=== PATIENT | female | born 1985 | race Caucasian/White ===

== ENCOUNTER → 2017-12-14 | Outpatient (CLI) | payer MEDICAID ==
[~2017-12-14] MED LIST: LVT.15T PO
--- NOTE | 2017-12-14 16:01 | Diagnostic Imaging Report ---
INDICATION: survey. TECHNIQUE: Multiple real-time grayscale images were obtained over the gravid uterus. COMPARISON: None. FINDINGS: There is a single live fetus in a variable presentation. The placenta is posterior. The amniotic fluid volume is normal. Cervical length is 4.8 cm. kidneys, bladder, and stomach are visualized. brain anatomy is unremarkable. There is a four-chamber heart. heart rate is 149 beats per minute. Three-vessel cord is noted. Cord insertion is unremarkable. spine is unremarkable. Biometrical measurements are as follows: Biparietal 5.0 cm, age 21 weeks 1 days. Head circumference 18.18 cm, age 20 weeks 4 days. Abdominal circumference 14.96 cm, age 20 weeks 2 days. Femur length 3.34 cm, age 20 weeks 4 days. Sonographic estimate age: 20 weeks 5 days. Sonographic estimated date of delivery: 04/28/2018. Estimated Weight: 350 gm (+/- 51 gm). LMP percentile: 42%. heart rate: 149 beats per minute. number: 1 of 1. IMPRESSION: Single live IUP of approximately 20 weeks 5 days gestational age. The estimated date of confinement sonographically is 04/28/2018. Dictated by: Dictated on workstation # [id number]
== END ==
LOC: RAD 15:26
PROVIDERS: ATTEND Obstetrics & Gynecology
DX: Z36.89 Encounter for other specified antenatal screening (principal); Z3A.20 20 weeks gestation of pregnancy
CPT/HCPCS: 76805

== ENCOUNTER → 2018-02-05 | Outpatient (CLI) | payer MEDICAID | LOC: LAB 08:02 | PROVIDERS: ATTEND Obstetrics & Gynecology | DX: O99.810 Abnormal glucose complicating pregnancy (principal) | CPT/HCPCS: 36415; 82951; 82952; 82962 ==

== ENCOUNTER 2018-03-21 09:50 | Outpatient (CLI) | payer MEDICAID ==
[2018-03-21] MEDS ORDERED: CLIN300C11 PO (11:55)
[2018-03-21] MEDS ORDERED: HYDR-757 PO (11:55)
--- NOTE | 2018-03-23 13:31 | Physician Query-Final Dx ---
SONALI MARTINEZ 03/23/18 1330: Clinic Account Progress/Dx Physician Query: Please give diagnosis Date of Service March 21, 2018 at 09:50 JOSSUE CARTER MD 03/28/18 1313: Clinic Account Progress/Dx DIAGNOSIS: Diagnosis Pilonidal cyst SONALI MARTINEZ March 23, 2018 13:30 JOSSUE CARTER MD March 28, 2018 13:13
[2018-04-19] MEDS ORDERED: ACHD5005 PO (08:56)
[2018-04-19] MEDS ORDERED: IBUP-844 PO (08:56)
== END 2018-03-21 10:57 | disposition home or self-care (01) ==
LOC: WSo 09:50 → LDRP 09:51 → WSo 10:57
PROVIDERS: ATTEND Obstetrics & Gynecology
DX: O99.713 Diseases of the skin and subcutaneous tissue complicating pregnancy, third trimester (principal); L05.91 Pilonidal cyst without abscess; Z3A.34 34 weeks gestation of pregnancy
CPT/HCPCS: 99212

== ENCOUNTER 2018-03-21 11:02 | Emergency (ER) | payer MEDICAID ==
[~2018-03-21] VITALS: Ht 154.9 cm; Wt 78.9 kg
--- OUTSIDE RECORDS SUMMARY | 2018-03-21 11:11 | XMS REPORT | Continuity of Care Document ---
Demographics Preferred Language Unknown Marital Status Unknown Oriental Orthodox Affiliation Unknown Race Unknown Ethnic Group Unknown Author Author [facility] Address Unknown Phone Unavailable Allergies Active Description Code Type Severity Reaction Onset Reported/Identified Relationship to Patient Clinical Status Yes No Known Drug Allergies [id number] Drug Allergy Unknown N/A 03/30/2008 Medications There is no data. Problems Date Dx Coded Attending Type Code Diagnosis Diagnosed By 07/23/2008 477.9 RHINITIS ALLERGIC 12/15/2008 380.4 CERUMEN IMPACTION 04/23/2009 244.9 UNSPECIFIED ACQUIRED HYPOTHYROIDISM 05/12/2011 493.90 ASTHMA UNSPECIFIED 05/12/2011 654.20 PREVIOUS C- SECTION 05/12/2011 V23.9 , HIGH-RISK (UNSPEC) 05/13/2011 V82.79 OTHER GENETIC SCREENING 09/16/2011 V65.11 NEW MOMMY VISIT 11/18/2011 626.8 DYSFUNCTIONAL UTERINE BLEEDING 11/18/2011 704.1 excessive facial or body hair (hirsutism) 11/18/2011 V77.1 visit for: screening exam diabetes mellitus 03/10/2012 239.3 BREAST MASS 03/11/2016 Ot 611.72 LUMP OR MASS IN BREAST 03/11/2016 Ot 611.72 LUMP OR MASS IN BREAST 03/11/2016 Ot 239.3 BREAST NEOPLASM NOS 03/11/2016 Ot 244.9 HYPOTHYROIDISM NOS 03/11/2016 Ot 648.13 THYROID DYSFUNC-ANTEPART 03/11/2016 Ot 649.63 UTERINE SIZE DATE DISCREPANCY, ANTEPARTU 03/13/2016 ANNIE YU Ot E01.0 IODINE-DEFICIENCY RELATED DIFFUSE (ENDEM 03/31/2016 ANNIE YU Ot E01.0 IODINE-DEFICIENCY RELATED DIFFUSE (ENDEM 05/29/2016 Ot 611.72 LUMP OR MASS IN BREAST 05/29/2016 Ot 611.72 LUMP OR MASS IN BREAST 05/29/2016 Ot 239.3 BREAST NEOPLASM NOS 06/01/2016 Ot 611.72 LUMP OR MASS IN BREAST 06/01/2016 Ot 611.72 LUMP OR MASS IN BREAST 06/01/2016 Ot 239.3 BREAST NEOPLASM NOS 12/08/2017 ANNIE YU [employer] Ot E01.0 IODINE-DEFICIENCY RELATED DIFFUSE (ENDEM 12/08/2017 ANNIE YU [employer] ELECT[employer]ICIAN Ot E01.0 IODINE-DEFICIENCY RELATED DIFFUSE (ENDEM 12/15/2017 FENECH DO, BRYN S Ot Z36.89 ENCOUNTER FOR OTHER SPECIFIED 12/15/2017 FENECH DO, BRYN S Ot Z3A.20 20 WEEKS GESTATION OF 12/15/2017 FENECH DO, BRYN S Ot Z36.89 ENCOUNTER FOR OTHER SPECIFIED 12/15/2017 FENECH DO, BRYN S Ot Z3A.20 20 WEEKS GESTATION OF 12/29/2017 FENECH DO, BRYN S Ot Z36.89 ENCOUNTER FOR OTHER SPECIFIED 12/29/2017 FENECH DO, BRYN S Ot Z3A.20 20 WEEKS GESTATION OF 02/05/2018 ANNIE YU [employer] Ot E01.0 IODINE-DEFICIENCY RELATED DIFFUSE (ENDEM 02/05/2018 FENECH DO, BRYN S Ot Z36.89 ENCOUNTER FOR OTHER SPECIFIED 02/05/2018 FENECH DO, BRYN S Ot Z3A.20 20 WEEKS GESTATION OF 02/07/2018 FENECH DO, BRYN S Ot O99.810 ABNORMAL GLUCOSE COMPLICATING 02/11/2018 FENECH DO, BRYN S Ot O99.810 ABNORMAL GLUCOSE COMPLICATING 02/21/2018 FENECH DO, BRYN S Ot O99.810 ABNORMAL GLUCOSE COMPLICATING Procedures There is no data. Results Test Result Range Thyroid Stimulating Hormone - 11/12/16 17:18 TSH 2.10 mIU/mL 0.32-5.00 Thyroid Stimulating Hormone - 06/10/17 15:20 TSH 0.69 mIU/mL 0.32-5.00 Testosterone, Free, Direct - 06/10/17 15:20 FREE TESTOSTERONE(DIRECT) 1.4 PG/ML 0.0-4.2 Capillary blood glucose measurement by glucometer (mass/volume) - 02/05/18 08: 23 Capillary blood glucose measurement by glucometer (mass/volume) 85 mg/dL 70-110 Encounters ACCT No. Visit Date/Time Discharge Status Pt. Type Provider Facility Loc./Unit Complaint [id number] 03/10/2012 12:02:00 Document Registration [id number] 02/05/2018 08:02:00 02/05/2018 23:59:59 CLS Outpatient BRYN WEAVER DO [facility] 099.810 [id number] 12/14/2017 15:26:00 12/14/2017 23:59:59 CLS Outpatient BRYN WEAVER DO [facility] RAD Z33.1 [id number] 03/11/2016 12:53:00 03/11/2016 23:59:59 CLS Outpatient ANNIE YU [facility] RAD THYROMEGALY, FOLLOW UP [id number] 03/11/2016 12:53:00 Document Registration [id number] 03/31/2012 07:57:00 Document Registration [id number] 03/23/2012 09:01:00 Document Registration [id number] 03/14/2012 11:37:00 Document Registration [id number] 05/20/2011 14:51:00 Document Registration [id number] 06/10/2017 15:29:00 06/10/2017 23:59:00 DIS Outpatient TOMER MILNER [id number] 11/12/2016 17:09:00 11/12/2016 23:59:00 DIS Outpatient TOMER MILNER
--- NOTE | 2018-03-21 11:36 | ED Integumentary General ---
General Chief Complaint: Skin/Wound Problems Stated Complaint: TAIL BONE PAIN POSSIBLE ABCESS/ 34 WEEKS PREG Nursing Triage Note: PATIENT COMPLAINS OF AN ABCESS ON HER LOWER BACK/TAILBONE REGION THAT SHE NOTICED LAST WEEK. PCP UNABLE TO SEE HER. Source: patient Exam Limitations: no limitations History of Present Illness Date Seen by Provider: March 21, 2018 Time Seen by Provider: 11:34 Initial Comments 34 week female presents to ER with tailbone pain for about one week. She has a history of this type of pain about 12 years ago when she had a pilonidal abscess. No fevers or chills. Timing/Duration: week, getting worse Severity: moderate Associated Symptoms: No fever Allergies and Home Medications Allergies Coded Allergies: No Known Drug Allergies (Verified Allergy, Unknown, 03/30/08) Home Medications Levothyroxine Sodium 150 Mcg Tablet, 1 EACH PO DAILY, (Reported) Patient Home Medication List Home Medication List Reviewed: Yes Constitutional: see HPI; No chills, No fever EENTM: see HPI Respiratory: no symptoms reported Cardiovascular: no symptoms reported Genitourinary: no symptoms reported Musculoskeletal: no symptoms reported Skin: see HPI Psychiatric/Neurological: No Symptoms Reported Endocrine: No Symptoms Reported Past Neuammh-Fuvwvh-Kjlwrp Hx Patient Social History Recent Foreign Travel: No Contact w/Someone Who Travel: No Recent Infectious Disease Expo: No Physical Exam Vital Signs Vital Signs - First Documented 03/21/18 11:26 Temp 98.8 Pulse 104 Resp 22 B/P (MAP) 124/70 (88) Pulse Ox 98 O2 Delivery Room Air Capillary Refill : Less Than 3 Seconds General Appearance: WD/WN, no apparent distress HEENT: PERRL/EOMI, normal ENT inspection Neck: non-tender, full range of motion Respiratory: no respiratory distress, no accessory muscle use Neurologic/Psychiatric: alert, normal mood/affect, oriented x 3 Skin: normal color, warm/dry Skin Problem Location: other (3 cm area of induration to the superior right side gluteal cleft consistent with pilonidal abscess.) Skin Problem Character: abscess Procedures/Interventions I&D : Blade Size: 11 Packing/Drain: Idoform / Progress Pilonidal abscess anesthetized with 2 mL of 2% lidocaine without epinephrine. Wound then opened with an 11 blade scalpel. Moderate amount of foul-smelling purulent material expressed. Culture collected and sent to lab. Progress/Results/Core Measures Results/Orders My Orders Orders - CHUCK DAVIES APRN Lidocaine 2% Injection 20 Ml (Xylocaine (03/21/18 11:45) Wound Culture (03/21/18 11:32) Clindamycin Capsule (Cleocin Capsule) (03/21/18 11:45) Hydrocodone/Apap 5/325 Tablet (Lortab 5 (03/21/18 11:45) Medications Given in ED Current Medications Medications Dose Ordered Sig/Joss Route Start Time Stop Time Status Last Admin Dose Admin Acetaminophen/ Hydrocodone Bitart 1 tab ONCE ONCE PO 03/21/18 11:45 03/21/18 11:46 DC 03/21/18 11:41 1 TAB Clindamycin HCl 300 mg ONCE ONCE PO 03/21/18 11:45 03/21/18 11:46 DC 03/21/18 11:41 300 MG Lidocaine HCl 2 ml ONCE ONCE INJ 03/21/18 11:45 03/21/18 11:46 DC 03/21/18 11:40 2 ML Vital Signs/I&O 03/21/18 11:26 Temp 98.8 Pulse 104 Resp 22 B/P (MAP) 124/70 (88) Pulse Ox 98 O2 Delivery Room Air Blood Pressure Mean: 88 Departure Impression Primary Impression: Pilonidal abscess Disposition: 01 HOME, SELF-CARE Condition: Stable Departure-Patient Inst. Decision time for Depature: 11:36 Referrals: BRYN WEAVER DO (PCP/Family) Primary Care Physician Patient Instructions: Abscess Incision and Drainage (DC) Add. Discharge Instructions: 1. You may shower leading water run over this. Take the antibiotics as directed. Follow-up with your primary care provider in 3-4 days for recheck. All discharge instructions reviewed with patient and/or family. Voiced understanding. Scripts Hydrocodone/Acetaminophen ([place] 5-325 Tablet) 1 Each Tablet 1 EACH PO Q4H PRN for PAIN-MODERATE TO SEVERE, #10 TAB Prov: CHUCK DAVIES APRN 03/21/18 Clindamycin HCl (Clindamycin HCl) 300 Mg Capsule 300 MG PO TID, #21 CAP Prov: CHUCK DAVIES APRN 03/21/18 Work/School Note: Work Release Form Date Seen in the Emergency Department: March 21, 2018 Return to Work: March 23, 2018 Copy Copies To 1: BRYN WEAVER PETER J APRN March 21, 2018 11:36
[2018-03-21] MEDS ORDERED: CLINDAMYCIN 150 MG (CLEOCIN) CAP PO ONE (11:45)
[2018-03-21] MEDS ORDERED: HYDROcodone/APAP 5 MG/325 MG (LORTAB) TAB PO ONE (11:45)
[2018-03-21] MEDS ORDERED: LIDOCAINE 2% 20 ML (XYLOCAINE) VIAL INJ ONE (11:45)
[2018-03-21] MEDS ORDERED: CLIN300C11 PO (11:55)
[2018-03-21] MEDS ORDERED: HYDR-757 PO (11:55)
[2018-03-21 12:02] VITALS: BP 124/70
[2018-04-19] MEDS ORDERED: IBUP-844 PO (08:56)
[2018-04-19] MEDS ORDERED: ACHD5005 PO (08:56)
== END 2018-03-21 12:02 | disposition home or self-care (01) ==
LOC: EDUNIT# 11:02 → ER 11:06
DX: O99.713 Diseases of the skin and subcutaneous tissue complicating pregnancy, third trimester (principal); L05.01 Pilonidal cyst with abscess; Z3A.34 34 weeks gestation of pregnancy
CPT/HCPCS: 87070; 87205; 99284

== ENCOUNTER 2018-04-02 13:42 | Outpatient (CLI) | payer MEDICAID ==
[~2018-04-02] VITALS: Ht 154.9 cm; Wt 80.3 kg
[~2018-04-02 13:42] MED LIST changes: +CLIN300C11 PO; +HYDR-757 PO
[2018-04-02 14:00] VITALS: BP 124/71
[2018-04-02 14:12] LABS: BILIRUBIN,URINE NEGATIVE (NEGATIVE); CLARITY,URINE SLIGHTLY CLOUDY; COLOR,URINE YELLOW; GLUCOSE, URINE (UA) NEGATIVE (NEGATIVE); KETONES,URINE 1+ (NEGATIVE); LEUKOCYTE ESTERASE ,URINE NEGATIVE (NEGATIVE); NITRITE,URINE NEGATIVE (NEGATIVE); PH,URINE 6.5 (5-9); PROTEIN,URINE NEGATIVE (NEGATIVE); UROBILINOGEN,URINE 1 MG/DL (NORMAL)
[2018-04-02 14:20] VITALS: BP 109/62
[2018-04-02 14:22] LABS: BACTERIA,URINE MODERATE /HPF; WBC,URINE 0-2 /HPF
[2018-04-02 14:40] VITALS: BP 118/63
--- NOTE | 2018-04-04 20:18 | Physician Query-Final Dx ---
CHARISMA JACQUES 04/04/18 2018: Clinic Account Progress/Dx Physician Query: Please give diagnosis Date of Service April 02, 2018 at 13:42 GENE CAMERON DO 04/25/18 0826: Clinic Account Progress/Dx DIAGNOSIS: Diagnosis contractions, third trimester previous section CHARISMA JACQUES April 04, 2018 20:18 GENE CAMERON DO Apr 25, 2018 08:26
== END 2018-04-02 15:00 | disposition home or self-care (01) ==
LOC: WSo 13:42 → LDRP 13:42 → WSo 15:00
PROVIDERS: ATTEND Obstetrics & Gynecology
DX: O47.03 False labor before 37 completed weeks of gestation, third trimester (principal); O34.211 Maternal care for low transverse scar from previous cesarean delivery; Z3A.36 36 weeks gestation of pregnancy
CPT/HCPCS: 81000; 87088; 99213

== ENCOUNTER 2018-04-06 11:15 | Outpatient (CLI) | payer MEDICAID ==
[~2018-04-06] VITALS: Ht 156.2 cm; Wt 79.4 kg
[2018-04-06 11:20] VITALS: BP 118/66
[2018-04-06] MEDS ORDERED: NS IV 500 ML 500 ML IV SCH (11:30)
[2018-04-06] MEDS ORDERED: D5 LR IV SOLUTION 1,000 ML IV SCH (11:30)
[2018-04-06] MEDS ORDERED: NS IV 500 ML 500 ML ONE (11:31)
[2018-04-06 12:06] LABS: BASOPHILS % (AUTO) 0 % (0-10); EOSINOPHILS # (AUTO) 0.1 10^3/uL (0.0-0.3); EOSINOPHILS % (AUTO) 1 % (0-10); HEMATOCRIT 33 % (35-52); HEMOGLOBIN 11.4 G/DL (11.5-16.0); LYMPHOCYTES % (AUTO) 22 % (12-44); MEAN CORPUSCULAR HEMOGLOBIN 31 PG (25-34); MEAN CORPUSCULAR HGB CONC 34 G/DL (32-36); MEAN CORPUSCULAR VOLUME 91 FL (80-99); MEAN PLATELET VOLUME 10.5 FL (7.4-10.4); MONOCYTES # (AUTO) 0.5 X 10^3 (0.0-1.0); MONOCYTES % (AUTO) 5 % (0-12); NEUTROPHILS # (AUTO) 6.5 X 10^3 (1.8-7.8); NEUTROPHILS % (AUTO) 72 % (42-75); PLATELET COUNT 258 10^3/uL (130-400); RED BLOOD COUNT 3.64 10^6/uL (4.35-5.85); RED CELL DISTRIBUTION WIDTH 12.4 % (10.0-14.5)
[2018-04-06] MEDS ORDERED: PREN1TAB86 PO (14:12)
[2018-04-06] MEDS ORDERED: LIOTHYSO5 PO (14:14)
[2018-04-06] MEDS ORDERED: METF500T5 PO (14:16)
[2018-04-06 16:40] VITALS: BP 123/72
--- NOTE | 2018-04-07 12:17 | Physician Query-Final Dx ---
SONALI MARTINEZ 04/07/18 1217: Clinic Account Progress/Dx Physician Query: Please give diagnosis Date of Service April 06, 2018 at 11:15 BRYN WEAVER DO 04/08/18 0710: Clinic Account Progress/Dx DIAGNOSIS: Diagnosis 36.3 week IUP contractions Previous SONALI MARTINEZ April 07, 2018 12:17 BRYN WEAVER DO April 08, 2018 07:10
[2018-04-19] MEDS ORDERED: IBUP-844 PO (08:56)
[2018-04-19] MEDS ORDERED: ACHD5005 PO (08:56)
== END 2018-04-06 17:15 | disposition home or self-care (01) ==
LOC: WSo 11:15 → LDRP 11:16 → WSo 17:15
PROVIDERS: ATTEND Obstetrics & Gynecology
DX: O47.03 False labor before 37 completed weeks of gestation, third trimester (principal); O34.219 Maternal care for unspecified type scar from previous cesarean delivery; Z3A.36 36 weeks gestation of pregnancy
CPT/HCPCS: 36415; 85025; 86850; 86900; 86901; 96360; 96361; 99213

== ENCOUNTER 2018-04-17 13:17 | Inpatient (IN) | payer MEDICAID ==
[~2018-04-17] VITALS: Ht 156.2 cm; Wt 78.2 kg
[~2018-04-17 13:17] MED LIST changes: +LIOTHYSO5 PO; +METF500T5 PO; +PREN1TAB86 PO
[2018-04-17 13:25] VITALS: BP 120/70
[2018-04-17] MEDS: LACTATED RINGERS 1,000 ML IV PRN ×2 (13:50→15:29)
[2018-04-17 14:08] LABS: BASOPHILS % (AUTO) 0 % (0-10); EOSINOPHILS # (AUTO) 0.1 10^3/uL (0.0-0.3); EOSINOPHILS % (AUTO) 1 % (0-10); HEMATOCRIT 35 % (35-52); LYMPHOCYTES # (AUTO) 2.3 X 10^3 (1.0-4.0); LYMPHOCYTES % (AUTO) 27 % (12-44); MEAN CORPUSCULAR HEMOGLOBIN 31 PG (25-34); MEAN CORPUSCULAR HGB CONC 35 G/DL (32-36); MEAN CORPUSCULAR VOLUME 90 FL (80-99); MEAN PLATELET VOLUME 10.9 FL (7.4-10.4); MONOCYTES # (AUTO) 0.5 X 10^3 (0.0-1.0); MONOCYTES % (AUTO) 6 % (0-12); NEUTROPHILS # (AUTO) 5.7 X 10^3 (1.8-7.8); NEUTROPHILS % (AUTO) 67 % (42-75); PLATELET COUNT 235 10^3/uL (130-400); RED BLOOD COUNT 3.85 10^6/uL (4.35-5.85); RED CELL DISTRIBUTION WIDTH 12.7 % (10.0-14.5); WHITE BLOOD COUNT 8.6 10^3/uL (4.3-11.0)
[2018-04-17] MEDS ORDERED: METOCLOPRAMIDE INJ 10 MG/2 ML (REGLAN) ONE (14:14)
[2018-04-17] MEDS ORDERED: CITRIC ACID/SOB CIT (BICITRA) 30 ML UDC ONE (14:14)
[2018-04-17] MEDS ORDERED: raNItidine 50 MG/2 ML INJ (ZANTAC) ONE (14:14)
[2018-04-17] MEDS ORDERED: metroNIDAZOLE 500MG/100ML IVPB 100 ML ONE (14:23)
[2018-04-17] MEDS ORDERED: AZITHROMYCIN 500 MG (ZITHROMAX) VIAL ONE (14:24)
[2018-04-17] MEDS ORDERED: NS (IVPB) 0 ML ONE (14:24)
[2018-04-17] MEDS ORDERED: NS (IVPB) 250 ML ONE (14:26)
[2018-04-17] MEDS ORDERED: D5 LR IV SOLUTION 1,000 ML IV SCH ×2 (14:27→15:38)
[2018-04-17] MEDS ORDERED: AZITHROMYCIN INJECTION 500 MG in NS (IVPB) 250 ML IV NR (14:30)
[2018-04-17] MEDS ORDERED: BUPIVACAINE SPINAL 0.75% (SENSORCAINE) 2 ML AMP ONE (14:31)
--- NOTE | 2018-04-17 14:31 | History & Physical-OB/GYN ---
History of Present Illness History of Present Illness Reason for visit/HPI rupture of membranes Date of Admission Date Seen by Provider: Apr 17, 2018 Time Seen by Provider: 14:20 I consulted on this patient on 04/17/18 14:26 Attending Physician Gene Cameron DO Admitting Physician Gene Cameron DO Consult 32 year old at 38 1/7 weeks with EDC of 04/30/18 based on US presents with complaint of ROM. Fluid is clear and she is grossly ruptured. cervix 2 cm dilated. Previous histort of 2 sections. Irregular contractions. Patient of Dr. Prieto during this . 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 Allergies and Home Medications Allergies Coded Allergies: No Known Drug Allergies (Verified , 03/30/08) Home Medications Levothyroxine Sodium 150 Mcg Tablet, 1 EACH PO DAILY, (Reported) Liothyronine Sodium 5 Mcg Tablet, 10 MCG PO BID, (Reported) Metformin HCl 500 Mg Tablet, 500 MG PO BID, (Reported) Vit W-Ca,Fe,FA(<1 mg) 1 Each Tablet, 1 EACH PO DAILY, (Reported) Patient Home Medication List Home Medication List Reviewed: Yes Past Zbirecj-Sbobpf-Gimxzj Hx Patient Social History Marrital Status: Number of Children: 2 Number of living children: 2 Alcohol Use: Denies Use Recreational Drug Use: No Smoking Status: Former Smoker Former Smoker, Quit: Aug 07, 2017 Type Used: Cigarettes 2nd Hand Smoke Exposure: No Recent Hopitalizations: No Immunizations Up To Date Tetanus Booster (TDap): Unknown Seasonal Allergies Seasonal Allergies: No Surgeries Yes Section (x2) Respiratory No Cardiovascular No Neurological No Reproductive System : Yes Expected Date of Delivery: Apr 30, 2018 Hx : 3 Hx Para: 1102 Hx Total # of Abortions (Spona: 0 Hx Reproductive Disorders: No Sexually Transmitted Disease: No HIV/AIDS: No Female Reproductive Disorders: Polycystic Ovarian Dis Genitourinary No Gastrointestinal No Musculoskeletal No Endocrine History of Endocrine Disorders: Yes Endocrine Disorders: Hypothyroidsim HEENT History of HEENT Disorders: No Cancer No Psychosocial History of Psychiatric Problem: No Integumentary History of Skin or Integumenta: No Blood Transfusions History of Blood Disorders: No Family Medical History Significant Family History: No Pertinent Family Hx Constitutional: no symptoms reported : Yes Expected Date of Delivery: Apr 30, 2018 Musculoskeletal: no symptoms reported grossly ruptured membranes All Other Systems Reviewed Negative Unless Noted: Yes Physical Exam Physical Exam Vital Signs Capillary Refill : Labs Laboratory Tests 04/17/18 13:50: White Blood Count 8.6, Red Blood Count 3.85L, Hemoglobin 12.0, Hematocrit 35, Mean Corpuscular Volume 90, Mean Corpuscular Hemoglobin 31, Mean Corpuscular Hemoglobin Concent 35, Red Cell Distribution Width 12.7, Platelet Count 235, Mean Platelet Volume 10.9H, Neutrophils (%) (Auto) 67, Lymphocytes (%) (Auto) 27 , Monocytes (%) (Auto) 6, Eosinophils (%) (Auto) 1, Basophils (%) (Auto) 0, Neutrophils # (Auto) 5.7, Lymphocytes # (Auto) 2.3, Monocytes # (Auto) 0.5, Eosinophils # (Auto) 0.1, Basophils # (Auto) 0.0 General Appearance: No Apparent Distress Respiratory: Lungs Clear, Normal Breath Sounds Cardiovascular: Regular Rate, Rhythm, No Murmur Abdominal: normal bowel sounds, non tender Gynecology/General: Other (gorssly ruptured. well being reassuring) Cervix OS: open Assessment/Plan Assessment and Plan 32 Year old at 38 1/7 weeks with gross rupture of membranes Previous section x 2. Will proceed with Repeat section at this time. risks of bleeding, infection, injury to bowel, bladder and ureter. consent has been signed. Prophylactic Ancef and Azithromycin (due to ROM). SVDs Peds - Melvin/employee relations advisor Admission Diagnosis Admission Status: Inpatient Order (span 2 midnights) Reason for Inpatient Admission: section GENE CAMERON DO Apr 17, 2018 14:31
[2018-04-17] MEDS ORDERED: DEXAMETHASONE 10 MG/ML (DECADRON) 1 ML VIAL ONE (14:32)
[2018-04-17] MEDS ORDERED: LIDOCAINE PF 2% 5 ML (XYLOCAINE) VIAL ONE (14:32)
[2018-04-17] MEDS ORDERED: ROPIVACAINE 5MG/ML 30ML VIAL ONE (14:32)
[2018-04-17] MEDS ORDERED: fentaNYL INJECTION 100 MCG/2 ML AMP ONE (14:32)
[2018-04-17] MEDS ORDERED: OXYTOCIN/NORMAL SALINE 1,000 ML IV ONE (15:12)
[2018-04-17] MEDS ORDERED: ONDANSETRON 4 MG/2 ML (SDV) Z0FRAN ONE (15:34)
[2018-04-17] MEDS ORDERED: OXYTOCIN/NORMAL SALINE 500 ML IV SCH (15:38)
[2018-04-17] MEDS ORDERED: TETANUS,DIPTH,PERTUSS P/F (BOOSTRIX) 0.5 ML VIAL IM SCH (15:45)
[2018-04-17] MEDS ORDERED: MEASLES,MUMPS,RUBELLA 1 EA INJ SC SCH (15:45)
[2018-04-17] MEDS ORDERED: IBUPROFEN 600 MG (MOTRIN) TAB PO SCH (15:45)
--- NOTE | 2018-04-17 15:45 | Cesarean Section Operative ---
Procedure Procedure Note Pre-operative Diagnosis: Marnie Gamble is a 32 /Para 3 / 1102, Gestational Age 38 1/7 weeks with SROM, history of previous section x 2. Post-operative Diagnosis: same Procedure: Repeat low transverse section Physician: GENE CAMERON Provider Enrollment Specialist: []CARMELA Wise Estimated blood loss: 300 mL Disposition: stable Findings: Viable male , Apgars 8/9, weight 6#8oz, intact placenta, 3vc, normal appearing uterus, tubes, and ovaries. very thin lower uterine segment. 2 small windows. OP with occult prolapse of cord Indications: Marnie Gamble is a 32 /Para 3 / 2,Gestational Age 38 1/7 weeks with SROM, history of previous section x 2. Procedure Details: The patient was seen in pre-op and the procedure was discussed with the patient in full, including the risks, benefits, and alternatives. All questions were answered. The patient was taken to the operating room and a time out was performed, verifying patient and procedure. After spinal anesthesia was placed by our anesthesia colleagues, the patient was placed in the dorsal supine with leftward tilt for uterine displacement.~ Her abdomen was then prepped and draped in the typical sterile fashion. A Pfannenstiel skin incision was made using a scalpel and carried down through the underlying fascia. The fascia was incised in the midline and tented up using Traci clamps. On both the inferior and superior fascia side the rectus muscle was dissected off bluntly and sharply using Menendez scissors. The peritoneum was identified and entered bluntly in the midline. This was then stretched laterally using manual strength. After entering the abdominal cavity and confirming lack of intraperitoneal adhesions, a large Aj retractor was placed and the lower uterine segment was visualized. A bladder flap was created with the use of Metzenbaum scissors.~ A scalpel was utilized to make a low transverse uterine incision. Amniotomy was performed with an Allis clamp with return of clear fluid. The infant's head was grasped and brought to the level of the incision. Fundal pressure was applied and infant was delivered without difficulty. Mouth and nares were suctioned with bulb suction. After the umbilical cord was clamped and cut, the was handed off to the pediatric staff. A sample of cord blood was then obtained. The placenta was delivered intact via uterine massage. The uterus was exteriorized and cleared of all clots and debris. The uterine incision was closed using 0 Vicryl in a running locked fashion. A second imbricated layer was placed using 0 Vicryl in a running fashion as well. The uterus was flexed forward and the posterior rectouterine space was inspected and cleared of all clots and debris. Again the hysterotomy site was examined and hemostasis was observed. The bilateral tubes and ovaries appeared normal. The uterus was placed back into the abdominal cavity and abdominal gutters were cleared of all clots and debris. A final check of the uterine incision showed it to be hemostatic. The peritoneum was closed using 3-0 Vicryl in a running fashion. The fascia was closed with 0 Vicryl in a running fashion. The subcutaneous space was hemostatic, and irrigated. The subcutaneous space was closed with 3-0 Vicryl in several single interrupted stitches. The skin was then closed using 4- 0 Monocryl in a running subcuticular fashion. The skin edges were reapproximated together and were hemostatic. A pressure dressing was applied. All sponge, lap and needle counts were correct at the end of the procedure per nursing. Vitals - Labs Labs Laboratory Tests 04/17/18 13:50: White Blood Count 8.6, Red Blood Count 3.85L, Hemoglobin 12.0, Hematocrit 35, Mean Corpuscular Volume 90, Mean Corpuscular Hemoglobin 31, Mean Corpuscular Hemoglobin Concent 35, Red Cell Distribution Width 12.7, Platelet Count 235, Mean Platelet Volume 10.9H, Neutrophils (%) (Auto) 67, Lymphocytes (%) (Auto) 27 , Monocytes (%) (Auto) 6, Eosinophils (%) (Auto) 1, Basophils (%) (Auto) 0, Neutrophils # (Auto) 5.7, Lymphocytes # (Auto) 2.3, Monocytes # (Auto) 0.5, Eosinophils # (Auto) 0.1, Basophils # (Auto) 0.0 GENE CAMERON DO Apr 17, 2018 15:45
[2018-04-17] MEDS: KETOROLAC 30 MG/ML VIAL IVP SCH ×2 (17:32→23:32)
[2018-04-17 18:05] VITALS: BP 115/74
[2018-04-17] MEDS: DOCUSATE SODIUM 100 MG (COLACE) CAP PO SCH (19:51)
[2018-04-17 20:00] VITALS: BP 122/75
[2018-04-17 23:32] VITALS: BP 108/65
[2018-04-18] MEDS: HYDROcodone/APAP 5 MG/325 MG (LORTAB) TAB PO PRN ×4 (00:19→20:13)
[2018-04-18] MEDS: CATHETER FLUSH 10 ML SYR IV SCH ×2 (00:40→06:10)
[2018-04-18 03:40] VITALS: BP 109/71
[2018-04-18] MEDS: KETOROLAC 30 MG/ML VIAL IVP SCH ×2 (06:10→19:41)
[2018-04-18 07:20] LABS: BASOPHILS % (AUTO) 0 % (0-10); EOSINOPHILS % (AUTO) 0 % (0-10); HEMATOCRIT 30 % (35-52); HEMOGLOBIN 10.3 G/DL (11.5-16.0); LYMPHOCYTES # (AUTO) 1.9 X 10^3 (1.0-4.0); LYMPHOCYTES % (AUTO) 14 % (12-44); MEAN CORPUSCULAR HEMOGLOBIN 32 PG (25-34); MEAN CORPUSCULAR HGB CONC 35 G/DL (32-36); MEAN CORPUSCULAR VOLUME 91 FL (80-99); MEAN PLATELET VOLUME 11.2 FL (7.4-10.4); MONOCYTES % (AUTO) 7 % (0-12); NEUTROPHILS % (AUTO) 79 % (42-75); PLATELET COUNT 205 10^3/uL (130-400); RED BLOOD COUNT 3.26 10^6/uL (4.35-5.85); RED CELL DISTRIBUTION WIDTH 12.5 % (10.0-14.5)
--- NOTE | 2018-04-18 08:49 | Postpartum Progress Note ---
Post Op Post-operative Day #1 s/p RLTCS Subjective: Patient is without complaints. Ambulating, voiding after patterson removed. Tolerating a regular diet without nausea or vomiting. Normal lochia. Pain is well controlled with oral pain medications. Passing flatus. [] feeding. [] Objective: Laboratory Tests Test 04/17/18 13:50 04/18/18 06:54 Range/Units White Blood Count 8.6 14.0 H 4.3-11.0 10^3/uL Red Blood Count 3.85 L 3.26 L 4.35-5.85 10^6/uL Hemoglobin 12.0 10.3 L 11.5-16.0 G/DL Hematocrit 35 30 L 35-52 % Mean Corpuscular Volume 90 91 80-99 FL Mean Corpuscular Hemoglobin 31 32 25-34 PG Mean Corpuscular Hemoglobin Concent 35 35 32-36 G/DL Red Cell Distribution Width 12.7 12.5 10.0-14.5 % Platelet Count 235 205 130-400 10^3/uL Mean Platelet Volume 10.9 H 11.2 H 7.4-10.4 FL Neutrophils (%) (Auto) 67 79 H 42-75 % Lymphocytes (%) (Auto) 27 14 12-44 % Monocytes (%) (Auto) 6 7 0-12 % Eosinophils (%) (Auto) 1 0 0-10 % Basophils (%) (Auto) 0 0 0-10 % Neutrophils # (Auto) 5.7 11.0 H 1.8-7.8 X 10^3 Lymphocytes # (Auto) 2.3 1.9 1.0-4.0 X 10^3 Monocytes # (Auto) 0.5 1.0 0.0-1.0 X 10^3 Eosinophils # (Auto) 0.1 0.0 0.0-0.3 10^3/uL Basophils # (Auto) 0.0 0.0 0.0-0.1 10^3/uL 04/17/18 04/18/18 23:32 03:40 Temp 98.1 98.1 Pulse 69 64 Resp 18 18 B/P (MAP) 108/65 (79) 109/71 (84) Pulse Ox 99 97 O2 Delivery Room Air Room Air 04/18/18 00:00 Intake Total 1950 ml Output Total 300 ml Balance 1650 ml Physical Exam: General - Alert and oriented, no apparent distress Abdomen - Soft, appropriately tender to palpation, non-distended, fundus firm at umbilicus Incision - clean, dry and intact; no erythema or induration, no drainage Extremities - no edema, negative Ralph's bilaterally [] Assessment: [] post-operative day # [], status post []. Recovering well, hemodynamically stable Acute blood loss anemia [] Plan: Routine post-operative care. Encourage breast feeding. Encourage ambulation. VTE prophylaxis: SCDs. Ferrous sulfate supplementation. Plan for discharge [] Vitals - Labs Vital Signs - I&O Vital Signs Date Time Temp Pulse Resp B/P (MAP) Pulse Ox O2 Delivery O2 Flow Rate FiO2 04/18/18 03:40 98.1 64 18 109/71 (84) 97 Room Air 04/17/18 23:32 98.1 69 18 108/65 (79) 99 Room Air 04/17/18 20:00 97.6 96 20 122/75 (91) 97 Room Air 04/17/18 18:05 98.2 81 20 115/74 (88) 100 Room Air 04/17/18 13:25 98.8 107 20 120/70 (87) 98 Room Air I & O 04/18/18 07:00 Intake Total 4850 ml Output Total 3200 ml Balance 1650 ml Labs Laboratory Tests 04/17/18 13:50: White Blood Count 8.6, Red Blood Count 3.85L, Hemoglobin 12.0, Hematocrit 35, Mean Corpuscular Volume 90, Mean Corpuscular Hemoglobin 31, Mean Corpuscular Hemoglobin Concent 35, Red Cell Distribution Width 12.7, Platelet Count 235, Mean Platelet Volume 10.9H, Neutrophils (%) (Auto) 67, Lymphocytes (%) (Auto) 27 , Monocytes (%) (Auto) 6, Eosinophils (%) (Auto) 1, Basophils (%) (Auto) 0, Neutrophils # (Auto) 5.7, Lymphocytes # (Auto) 2.3, Monocytes # (Auto) 0.5, Eosinophils # (Auto) 0.1, Basophils # (Auto) 0.0 04/18/18 06:54: White Blood Count 14.0H, Red Blood Count 3.26L, Hemoglobin 10.3L, Hematocrit 30L , Mean Corpuscular Volume 91, Mean Corpuscular Hemoglobin 32, Mean Corpuscular Hemoglobin Concent 35, Red Cell Distribution Width 12.5, Platelet Count 205, Mean Platelet Volume 11.2H, Neutrophils (%) (Auto) 79H, Lymphocytes (%) (Auto) 14, Monocytes (%) (Auto) 7, Eosinophils (%) (Auto) 0, Basophils (%) (Auto) 0, Neutrophils # (Auto) 11.0H, Lymphocytes # (Auto) 1.9, Monocytes # (Auto) 1.0, Eosinophils # (Auto) 0.0, Basophils # (Auto) 0.0 GENE CAMERON DO Apr 18, 2018 08:49
[2018-04-18] MEDS: DOCUSATE SODIUM 100 MG (COLACE) CAP PO SCH ×2 (09:17→20:12)
--- NOTE | 2018-04-18 09:23 | Anesthesia-Regional Post-Op ---
Regional Patient Condition Mental Status: Alert, Oriented x3 Circulation: Same as Pre-Op Headache: Absent Sensation: Full Recovery Motor Block: Absent Post Op Complications Complications None Follow Up Care/Instructions Patient Instructions None needed. Anesthesia/Patient Condition Patient is doing well, no complaints, stable vital signs, no apparent adverse anesthesia problems. No complications reported per nursing. D/C home per [facility] Criteria: Yes DONOVAN KHAN CRNA Apr 18, 2018 09:23
[2018-04-18 09:30] VITALS: BP 104/67
[2018-04-18] MEDS: IBUPROFEN 600 MG (MOTRIN) TAB PO SCH ×2 (13:32→20:12)
[2018-04-18 14:00] VITALS: BP 109/68
[2018-04-18 20:13] VITALS: BP 113/76
[2018-04-19 01:54] VITALS: BP 98/59
[2018-04-19] MEDS: IBUPROFEN 600 MG (MOTRIN) TAB PO SCH ×3 (01:54→16:05)
[2018-04-19 07:47] VITALS: BP 115/78
[2018-04-19] MEDS: DOCUSATE SODIUM 100 MG (COLACE) CAP PO SCH (07:53)
[2018-04-19] MEDS: HYDROcodone/APAP 5 MG/325 MG (LORTAB) TAB PO PRN ×2 (07:55→16:05)
--- NOTE | 2018-04-19 08:55 | Postpartum Progress Note ---
Post Op Post-operative Day #2 s/p RLTCS Subjective: Patient is without complaints. Ambulating, voiding after patterson removed. Tolerating a regular diet without nausea or vomiting. Normal lochia. Pain is well controlled with oral pain medications. Passing flatus. [] feeding. [] Objective: 04/19/18 04/19/18 01:54 07:47 Temp 98.0 97.3 Pulse 87 74 Resp 18 16 B/P (MAP) 98/59 (72) 115/78 (90) Pulse Ox 99 97 O2 Delivery Room Air Room Air 04/18/18 23:59 Intake Total 2640 ml Output Total 500 ml Balance 2140 ml Physical Exam: General - Alert and oriented, no apparent distress Abdomen - Soft, appropriately tender to palpation, non-distended, fundus firm at umbilicus Incision - clean, dry and intact; no erythema or induration, no drainage Extremities - no edema, negative Ralph's bilaterally [] Assessment: [] post-operative day # [], status post []. Recovering well, hemodynamically stable Acute blood loss anemia [] Plan: Routine post-operative care. Encourage breast feeding. Encourage ambulation. VTE prophylaxis: SCDs. Ferrous sulfate supplementation. Plan for discharge [] Vitals - Labs Vital Signs - I&O Vital Signs Date Time Temp Pulse Resp B/P (MAP) Pulse Ox O2 Delivery O2 Flow Rate FiO2 04/19/18 07:47 97.3 74 16 115/78 (90) 97 Room Air 04/19/18 01:54 98.0 87 18 98/59 (72) 99 Room Air 04/18/18 20:13 97.6 89 20 113/76 (88) 99 Room Air 04/18/18 14:00 97.9 96 20 109/68 (82) 100 Room Air 04/18/18 09:30 98.1 95 20 104/67 (79) 100 Room Air I & O 04/19/18 06:59 Intake Total 3940 ml Output Total 2800 ml Balance 1140 ml GENE CAMERON DO Apr 19, 2018 08:55
[2018-04-19] MEDS ORDERED: IBUP-844 PO (08:56)
[2018-04-19] MEDS ORDERED: ACHD5005 PO (08:56)
--- NOTE | 2018-04-19 09:03 | Discharge Inst-Women's Service ---
Discharge Inst-Women's Serv Depart Medication/Instructions New, Converted or Re-Newed RX: RX on Chart Final Diagnosis SROM previous section Aristeo's thyroiditis PCOS Consults/Follow Up Additional Follow Up: Yes (1 week with Carmela Quick, 6 weeks with Fenech) Activity Activity: Activity as Tolerated Driving Instructions: No Driving for 1 Week NO SMOKING: NO SMOKING Nothing Inside Vagina: No Douching, No [place], No Tampons Diet Discharge Diet: No Restrictions Symptoms to Report to : Bleeding Excessive, Pain Increased, Fever Over 101 Degrees F, Vaginal Bleeding Increase, Cramps in Feet or Legs, Vaginal Discharge Foul For Any Problems or Questions: Contact Your Physician Skin/Wound Care Infection Signs and Symptoms: Increased Redness, Foul Odor of Wound, Increased Drainage, Skin Itchy or Has a Rash, Increased Swelling, Temperature Above 101 F Operative Area Clean and Dry: Keep Incision Clean/Dry Stitches/Rosepine/Dermabond: Dermabond Bathing Instructions: GENE Sexton DO Apr 19, 2018 09:03
[2018-04-19 12:21] VITALS: BP 122/78
== END 2018-04-19 16:25 | disposition home or self-care (01) | DRG 766 ==
LOC: LDRP 13:17 → WSo 13:17 → LDRP 14:31 → WSo 14:31 → LDRP 16:30
PROVIDERS: ADMIT Obstetrics & Gynecology; ATTEND Obstetrics & Gynecology
PROC: 10D00Z1 Extraction of Products of Conception, Low, Open Approach (ICD-10-PCS; principal; 2018-04-17 14:44)
DX: O99.284 Endocrine, nutritional and metabolic diseases complicating childbirth (principal); Z37.0 Single live birth; E06.3 Autoimmune thyroiditis; E03.9 Hypothyroidism, unspecified; O34.211 Maternal care for low transverse scar from previous cesarean delivery; O99.89 Other specified diseases and conditions complicating pregnancy, childbirth and the puerperium; E28.2 Polycystic ovarian syndrome; Z3A.38 38 weeks gestation of pregnancy
CPT/HCPCS: 36415; 85025; 86850; 86900; 86901; 88307; 94664; 99212

== ENCOUNTER → 2022-07-16 | Outpatient (CLI) | payer MEDICAID ==
[~2022-07-16] MED LIST changes: +ACHD5005 PO; +CLIN-144 PO; -CLIN300C11 PO; +HYDR-4226 PO; -HYDR-757 PO; +IBUP-844 PO; +METF-397 PO; -METF500T5 PO
--- NOTE | 2022-07-16 17:07 | Diagnostic Imaging Report ---
INDICATION: survey. TECHNIQUE: Multiple real-time grayscale images were obtained over the gravid uterus. COMPARISON: None. FINDINGS: Single live intrauterine is identified. heart rate is documented at 142 bpm. Estimated gestational age by ultrasound is consistent with provided clinical dates. Placenta is anterior, not low-lying. position is cephalic. Subjectively, amniotic fluid is within normal limits. Anatomic survey was performed. The kidneys, bladder, stomach, four-chamber heart, three-vessel cord and cord insertion are well visualized and are unremarkable. Intracranial structures are grossly unremarkable as well. spine is suboptimally visualized due to position. Internal adnexa are unremarkable. Ovaries are not well visualized due to positioning. IMPRESSION: 1. Single live intrauterine . 2. Amniotic survey is grossly unremarkable, although spine is not well visualized distally. Follow-up is recommended. Please see below for additional details. Biometrical measurements are as follows: Biparietal 4.73 cm, age 20 weeks 3 days. Head circumference 17.43 cm, age 20 weeks 0 days. Abdominal circumference 14.82 cm, age 20 weeks 1 days. Femur length 3.51 cm, age 21 weeks 1 days. Sonographic estimate age: 20 weeks 3 days. Sonographic estimated date of delivery: 11/30/2022. Estimated Weight: 357 gm (+/- 52 gm). LMP percentile: 57%. heart rate: 142 beats per minute. number: 1 of 1. Dictated by: Dictated on workstation # [id number]
== END ==
LOC: RAD 14:30
PROVIDERS: ATTEND Obstetrics & Gynecology
DX: Z36.89 Encounter for other specified antenatal screening (principal); Z3A.20 20 weeks gestation of pregnancy
CPT/HCPCS: 76805

== ENCOUNTER 2022-11-10 15:59 | Outpatient (CLI) | payer MEDICAID ==
[~2022-11-10] VITALS: Ht 152.4 cm; Wt 83.8 kg
[2022-11-10 16:23] VITALS: BP 130/68
[2022-11-10] MEDS ORDERED: LACTATED RINGERS 1,000 ML IV ONE (17:15)
[2022-11-10 19:51] VITALS: BP 130/74
[2022-11-10 19:53] VITALS: BP 130/74
--- NOTE | 2022-11-11 09:19 | Physician Query-Final Dx ---
GI11/11/22 0919: Clinic Account Progress/Dx Physician Query: Please give diagnosis Please include # weeks gestation Date of Service Nov 10, 2022 at 15:59 BRYN WEAVER DO 11/11/22 1616: Clinic Account Progress/Dx DIAGNOSIS: Diagnosis 37 weeks Irregular uterine contractions GI,NovNov 11, 2022 09:19 BRYN WEAVER DO Nov 11, 2022 16:16
== END 2022-11-10 19:53 ==
LOC: WSo 15:59 → LDRP 16:00 → WSo 19:53
PROVIDERS: ATTEND Obstetrics & Gynecology
DX: O62.9 Abnormality of forces of labor, unspecified (principal); Z3A.37 37 weeks gestation of pregnancy
CPT/HCPCS: 96360; 96361; 99214

== ENCOUNTER 2022-11-17 05:35 | Outpatient (CLI) | payer MEDICAID ==
[~2022-11-17] VITALS: Ht 154.9 cm; Wt 82.0 kg
[2022-11-21] MEDS ORDERED: IBUP-1780 PO (10:45)
[2022-11-21] MEDS ORDERED: OXYC1TAB12 PO (10:45)
[2022-11-21] MEDS ORDERED: DOCU100C37 PO (10:45)
== END 2022-11-18 10:27 | disposition home or self-care (01) ==
LOC: PREOP 05:35
PROVIDERS: ATTEND Obstetrics & Gynecology
DX: Z01.818 Encounter for other preprocedural examination (principal)

== ENCOUNTER 2022-11-20 10:16 | Inpatient (IN) | payer MEDICAID ==
[2022-11-20] VITALS (9 sets, daily range): BP systolic 99–122; BP diastolic 47–70
[~2022-11-20] VITALS: Ht 154.9 cm; Wt 82.1 kg
[2022-11-20] MEDS ORDERED: LACTATED RINGERS 1,000 ML IV PRN ×2 (11:00)
[2022-11-20] MEDS ORDERED: FAMOTIDINE 20MG/2ML IV (PEPCID) IV ONE (11:00)
[2022-11-20] MEDS ORDERED: CITRIC ACID/SOB CIT (BICITRA) 30 ML UDC PO ONE (11:00)
[2022-11-20] MEDS ORDERED: METOCLOPRAMIDE INJ 10 MG/2 ML (REGLAN) IV ONE (11:00)
[2022-11-20] MEDS ORDERED: fentaNYL INJ 100 MCG/2 ML AMP ONE (11:02)
[2022-11-20] MEDS ORDERED: OXYTOCIN PRE-MIX DRIP 1,000 ML IV ONE (11:02)
[2022-11-20 11:06] LABS: BASOPHILS % (AUTO) 0 % (0-10); EOSINOPHILS # (AUTO) 0.1 10^3/uL (0.0-0.3); EOSINOPHILS % (AUTO) 1 % (0-10); HEMATOCRIT 35 % (35-52); LYMPHOCYTES % (AUTO) 19 % (12-44); MEAN CORPUSCULAR HEMOGLOBIN 31 pg (25-34); MEAN CORPUSCULAR HGB CONC 34 g/dL (32-36); MEAN CORPUSCULAR VOLUME 91 fL (80-99); MEAN PLATELET VOLUME 10.9 fL (9.0-12.2); MONOCYTES # (AUTO) 0.4 10^3/uL (0.0-1.0); MONOCYTES % (AUTO) 4 % (0-12); NEUTROPHILS # (AUTO) 7.8 10^3/uL (1.8-7.8); NEUTROPHILS % (AUTO) 76 % (42-75); PLATELET COUNT 238 10^3/uL (130-400); WHITE BLOOD COUNT 10.4 10^3/uL (4.3-11.0)
[2022-11-20] MEDS ORDERED: CITRIC ACID/SOB CIT (BICITRA) 30 ML UDC ONE (11:06)
[2022-11-20] MEDS ORDERED: METOCLOPRAMIDE INJ 10 MG/2 ML (REGLAN) ONE (11:06)
[2022-11-20] MEDS ORDERED: FAMOTIDINE 20MG/2ML IV (PEPCID) ONE (11:07)
[2022-11-20] MEDS ORDERED: ceFAZolin INJECTION 2,000 MG in NS (IVPB) 50 ML IV ONE (11:15)
[2022-11-20] MEDS ORDERED: metroNIDAZOLE 500MG/100ML IVPB 100 ML IV ONE (11:15)
--- NOTE | 2022-11-20 11:19 | History & Physical ---
History and Physical Date Seen by Provider: Nov 20, 2022 Time Seen by Provider: 11:17 This patient is a 37-year-old 4 para 3 3 female currently at 38 weeks and 3 days. She presented with complaint of regular painful contractions. All of her previous deliveries were done well before 39 weeks gestation. She is in pain with her contractions. She denies rupture membranes or bleeding.She has had no problems with this . She was planning on repeat . Allergies are none Medications are vitamins and per the [facility] Medical social and surgical histories are per her antepartum record HEENT exam is normal Neck is supple no lymphadenopathy no thyromegaly Abdomen gravid soft nontender nondistended Extremities show no clubbing or cyanosis. There is no Homans' sign. Pelvic exam shows a cervix 2 and half centimeters dilated 50% effaced vertex presentation. Laboratory Tests Test 11/20/22 10:45 Range/Units White Blood Count 10.4 4.3-11.0 10^3/uL Red Blood Count 3.85 3.80-5.11 10^6/uL Hemoglobin 12.0 11.5-16.0 g/dL Hematocrit 35 35-52 % Mean Corpuscular Volume 91 80-99 fL Mean Corpuscular Hemoglobin 31 25-34 pg Mean Corpuscular Hemoglobin Concent 34 32-36 g/dL Red Cell Distribution Width 12.3 10.0-14.5 % Platelet Count 238 130-400 10^3/uL Mean Platelet Volume 10.9 9.0-12.2 fL Immature Granulocyte % (Auto) 1 % Neutrophils (%) (Auto) 76 H 42-75 % Lymphocytes (%) (Auto) 19 12-44 % Monocytes (%) (Auto) 4 0-12 % Eosinophils (%) (Auto) 1 0-10 % Basophils (%) (Auto) 0 0-10 % Neutrophils # (Auto) 7.8 1.8-7.8 10^3/uL Lymphocytes # (Auto) 2.0 1.0-4.0 10^3/uL Monocytes # (Auto) 0.4 0.0-1.0 10^3/uL Eosinophils # (Auto) 0.1 0.0-0.3 10^3/uL Basophils # (Auto) 0.0 0.0-0.1 10^3/uL Immature Granulocyte # (Auto) 0.1 0.0-0.1 10^3/uL Assessment and plan 38-3/7 weeks gestation with 3 previous C-sections in labor. We will proceed with delivery now Previous Allergies and Home Medications Allergies Coded Allergies: No Known Drug Allergies (Verified , 11/18/22) Patient Home Medication List Home Medication List Reviewed: No Levothyroxine Sodium (Synthroid) 150 Mcg Tablet, 1 EACH PO DAILY, (Reported) Entered as Reported by: YASMINE KEITH on 03/31/12 0859 Last Action: Reviewed Liothyronine Sodium (Cytomel) 5 Mcg Tablet, 5 MCG PO BID, (Reported) Entered as Reported by: HOLLIS TA on 04/06/18 1414 Last Action: Reviewed Vit W-Ca,Fe,FA(<1 mg) ( Vitamins) 1 Each Tablet, 1 EACH PO DAILY, (Reported) Entered as Reported by: HOLLIS TA on 04/06/18 1412 Last Action: Reviewed JOSSUE CARTER MD Nov 20, 2022 11:19
[2022-11-20] MEDS ORDERED: NS (IVPB) 100 ML ONE (11:22)
[2022-11-20] MEDS ORDERED: ceFAZolin INJECTION 2,000 MG ONE (11:22)
[2022-11-20] MEDS ORDERED: metroNIDAZOLE 500MG/100ML IVPB 100 ML ONE (11:22)
[2022-11-20] MEDS ORDERED: PROMETHAZINE INJ 25 MG/ML (PHENERGAN) AMP IM PRN (11:30)
[2022-11-20] MEDS ORDERED: MEPERIDINE (DEMEROL) INJ 100 MG/ML IM PRN (11:30)
[2022-11-20] MEDS ORDERED: D5 LR IV SOLUTION 1,000 ML IV SCH (11:30)
[2022-11-20] MEDS: OXYTOCIN PRE-MIX DRIP 500 ML IV SCH ×2 (11:45→12:00)
[2022-11-20] MEDS ORDERED: BUPIVACAINE 0.25% 10 ML (SENSORCAINE) VIAL ONE (11:59)
[2022-11-20] MEDS: KETOROLAC 30 MG/ML VIAL IV SCH ×2 (12:55→18:52)
[2022-11-20] MEDS: oxyCODONE/APAP 10/325MG (PERCOCET 10) TABLET PO PRN ×2 (16:55→22:55)
[2022-11-20] MEDS: DOCUSATE SODIUM 100 MG (COLACE) CAP PO SCH (21:40)
--- NOTE | 2022-11-20 22:40 | OPERATIVE REPORT ---
DATE OF SERVICE: 11/20/2022 PREOPERATIVE DIAGNOSIS: A 38 and 3/7 weeks' gestation with 3 previous C-sections in labor. POSTOPERATIVE DIAGNOSIS. A 38 and 3/7 weeks' gestation with 3 previous C-sections in labor. PROCEDURE: Repeat low transverse delivery of a viable male with Apgars of 8 and 9 at 1 and 5 minutes respectively, weight of 6 pounds 10 ounces. Cord blood pH was 7.26 and a time of 11:44. DESCRIPTION OF PROCEDURE: With the patient in supine position, under satisfactory spinal analgesia, she was prepped and draped in the usual fashion for abdominal surgery. Repeat Pfannenstiel incision was made through the skin with a scalpel. The patient's abdomen entered in the usual manner. Bladder retractor placed in position. Clean scalpel used to make a 4 cm hysterotomy incision transversely across the lower uterine segment. Copious clear fluid was released on hysterotomy. Davila forceps were applied to facilitate the delivery of a vigorous viable male infant with Apgars and stats as noted above. The infant was bulb suctioned on delivery of the head, again on completion of the delivery. The umbilical cord was doubly clamped and cut and the passed to the pediatric nurse in attendance for the delivery. Cord blood was obtained. The placenta delivered spontaneously Blancas. It was normal with a 3-vessel cord. It was sent to pathology for permanent section. The uterus was exteriorized and the interior wiped clean with a wet laparotomy sponge. Uterine incision was then closed with a running locked suture of 2-0 Vicryl. Hemostasis was complete. The uterus was returned to the abdominal cavity. All blood clot and debris removed from the abdominal cavity. Sponge and needle counts were correct. Hemostasis assured. Anterior parietal peritoneum was closed with running suture of 2-0 Vicryl. The rectus muscles were closed with that suture. Rectus fascia was closed with that suture. Subcutaneous tissue was closed with that suture and then the skin was staple. Sponge and needle counts were correct on completion of the procedure. Blood loss was around 400 mL. The patient tolerated the procedure well and was transferred to the recovery room in stable condition and the remained under the care of the labor and delivery nurse. Job ID: [id number] DocumentID: [id number] Dictated Date: 11/20/2022 12:55:33 Lpn Medical Assistant Date: 11/20/2022 22:38:00 Dictated By: JOSSUE CARTER MD
[2022-11-21] VITALS: BP 113/63
[2022-11-21 04:55] VITALS: BP 122/61
[2022-11-21] MEDS: CATHETER FLUSH 10 ML SYR IV PRN ×2 (06:18)
[2022-11-21] MEDS: KETOROLAC 30 MG/ML VIAL IV SCH ×2 (06:18)
[2022-11-21] MEDS: DOCUSATE SODIUM 100 MG (COLACE) CAP PO SCH (09:15)
[2022-11-21] MEDS: oxyCODONE/APAP 10/325MG (PERCOCET 10) TABLET PO PRN ×2 (09:15→13:51)
[2022-11-21 09:17] VITALS: BP 115/60
--- NOTE | 2022-11-21 10:44 | Progress Note ---
Standard Progress Note Progress Notes/Assess & Plan Date Seen by a Provider: Nov 21, 2022 Time Seen by a Provider: 10:42 Progress/Assessment & Plan This patient is without complaint. She is ambulating, voiding, tolerating oral intake well and has good pain control. She denies chest pain, denies shortness of breath, denies nausea and vomiting, and denies headache. She is requesting discharge home. Vital Signs Date Time Temp Pulse Resp B/P (MAP) Pulse Ox O2 Delivery O2 Flow Rate FiO2 11/21/22 09:17 36.8 97 18 115/60 (78) 98 Room Air 11/21/22 04:55 36.6 86 18 122/61 (81) 98 Room Air 11/21/22 00:00 37.3 78 16 113/63 (80) 98 Room Air 11/20/22 21:40 36.8 82 16 99/52 (68) 97 Room Air 11/20/22 18:00 37.1 92 16 116/59 (78) 99 Room Air 11/20/22 15:13 Room Air 11/20/22 14:05 36.5 82 18 112/62 (79) 99 Room Air 11/20/22 13:00 36.5 18 111/47 (68) 99 Room Air 11/20/22 13:00 Room Air 11/20/22 12:45 Room Air 11/20/22 12:45 36.5 16 110/67 (81) 99 Room Air 11/20/22 12:30 36.2 18 115/69 (84) 99 Room Air 11/20/22 12:30 Room Air 11/20/22 12:15 36.2 87 18 105/69 (81) 96 Room Air 11/20/22 12:15 36.2 18 105/69 (81) 96 Room Air 11/20/22 12:15 Room Air 11/20/22 10:45 36.3 116 18 122/70 99 Room Air I & O 11/21/22 07:00 Intake Total 4350 ml Output Total 2050 ml Balance 2300 ml Vital signs are stable. Patient is afebrile. The abdomen is benign. The surgical incision is clean dry and intact. Fundus is firm below the umbilicus and nontender. Extremities show no clubbing or cyanosis. There is no Homans' sign. Pelvic exam was deferred Assessment and plan Postoperative day #1 status post repeat at 38+ weeks gestation due to spontaneous labor and 3 previous C-sections. Patient is doing well will be allowed discharge home at her request today or tomorrow Final Diagnosis 38-week repeat JOSSUE CARTER MD Nov 21, 2022 10:44
[2022-11-21] MEDS ORDERED: DOCU100C37 PO (10:45)
[2022-11-21] MEDS ORDERED: IBUP-1780 PO (10:45)
[2022-11-21] MEDS ORDERED: OXYC1TAB12 PO (10:45)
--- NOTE | 2022-11-21 10:47 | Discharge Inst-Surgical ---
Discharge Inst-Surgical Depart Medication/Instructions New, Converted or Re-Newed RX: Transmitted to Pharmacy Consults/Follow Up Orders & Referrals Follow Up Appt: RTC 1 week for incision check with Dr. Webb Return to clinic Wednesday or Wednesday for staple removal if discharged home on postoperative day #1. Call to make follow up appt. for patient in [address] Prieto. Wound Care: Remove vannesa, apply benzoin and steri strips if patient is discharged home on postoperative day 2 or later Activity Per routine post instructions. Prescriptions have been transmitted electronically to patient's pharmacy for Percocet Motrin and Colace Diet as tolerated Patient may shower or tub bathe as desired. Continue home meds Activity Activity as Tolerated: No Diet Discharge Diet: No Restrictions JOSSUE WEBB MD Nov 21, 2022 10:47
[2022-11-21] MEDS ORDERED: IBUPROFEN 800 MG (MOTRIN) TAB PO SCH (11:30)
[2022-11-21 12:10] VITALS: BP 130/73
== END 2022-11-21 15:50 | disposition home or self-care (01) | DRG 788 ==
LOC: WSo 10:16 → LDRP 10:16 → WSo 10:47 → LDRP 10:48
PROVIDERS: ADMIT Obstetrics & Gynecology; ATTEND Obstetrics & Gynecology
PROC: 10D00Z1 Extraction of Products of Conception, Low, Open Approach (ICD-10-PCS; principal; 2022-11-20 13:30)
DX: O34.211 Maternal care for low transverse scar from previous cesarean delivery (principal); Z3A.38 38 weeks gestation of pregnancy; Z37.0 Single live birth
CPT/HCPCS: 36415; 85025; 86850; 86900; 86901; 94664; 99212